=== PATIENT | male | born 1995 ===

== ENCOUNTER 2019-09-21 11:32 | Emergency (ER) | payer OTHER ==
[~2019-09-21] VITALS: Ht 170.2 cm; Wt 70.5 kg
[2019-09-21 11:35] VITALS: TEMP 98.6
[2019-09-21] MEDS ORDERED: PERCOCET 325 MG1 TA2 PO (14:13)
[2019-09-21 14:53] VITALS: BP 139/89; PULSE 96
== END 2019-09-21 14:53 | disposition home or self-care (01) ==
LOC: COL.ER 11:32
DX: S82.51XA Displaced fracture of medial malleolus of right tibia, initial encounter for closed fracture (principal); F17.210 Nicotine dependence, cigarettes, uncomplicated; V86.56XA Driver of dirt bike or motor/cross bike injured in nontraffic accident, initial encounter
CPT/HCPCS: J1170; J2405; J2704; J7030; Q4041